=== PATIENT | female | born 1945 | race Caucasian/White ===

== ENCOUNTER 2018-10-08 12:11 | Day surgery (SDC) | payer MEDICARE ==
[2018-10-07 15:59] VITALS: BMI 51.9
--- NOTE | 2018-10-08 12:59 | RAD ---
5 VIEWS CERVICAL SPINE: Date: 10/08/18 COMPARISON: None. HISTORY: Cervical radiculopathy. FINDINGS: AP, lateral, open-mouth odontoid, and flexion/extension views of the cervical spine were performed. T he intervertebral discs are narrowed in the lower cervical spine with small surrounding osteophytes p resent. Vertebral bodies demonstrate normal height and alignment without fracture or subluxation. Ali gnment is unchanged with flexion and extension. Posterior facet arthrosis is seen in the mid cervical spine. IMPRESSION: Degenerative changes of the cervical spine with unchanged alignment with bending. POS: [facility]
--- NOTE | 2018-10-08 14:22 | CT ---
CT CERVICAL SPINE: Multiple axial tomograms are obtained through the cervical spine with multiplanar reconstruction. INDICATION: Cervical radiculopathy. FINDINGS: Moderate degenerative changes of the cervical spine. The cervical vertebrae maintain height. There are degenerative disk changes at all levels. There is an anterolisthesis at C4-5 measured at approxi mately 4-5 mm. There is slight anterolisthesis at C3-4 measured at 3 mm. At C2-3, mild posterior spondylosis without cord impingement. No significant foraminal stenosis at t his level. At C3-4, slight anterolisthesis. Posterior spondylosis effaces the anterior subarachnoid space. Rig ht foraminal narrowing due to facet and uncinate hypertrophy. At C4-5, anterolisthesis. Posterior disk bulge and spondylosis. These changes impinge on the anteri or cord. Right foraminal stenosis due to facet and uncinate hypertrophy. At C5-6, mild posterior disk bulge and spondylosis abut the anterior cord. Bilateral foraminal narro wing secondary to facet and uncinate hypertrophy. At C6-7, no significant disk bulge or spondylosis. No significant foraminal stenosis. IMPRESSION: Degenerative disk changes throughout the cervical spine as described above with anterolisthesis at C3 -4 and C4-5 as noted. See description at each level above. POS: [facility]
== END 2018-10-08 16:45 ==
LOC: CT 12:11
PROVIDERS: ATTEND Radiology Diagnostic Radiology
PROC: B02BZZZ Computerized Tomography (CT Scan) of Spinal Cord (ICD-10-PCS; principal; 2018-10-08)
PROC: [UNRECOGNIZED PROCEDURE] (2018-10-08)
DX: M54.12 Radiculopathy, cervical region (principal); M47.812 Spondylosis without myelopathy or radiculopathy, cervical region; M43.12 Spondylolisthesis, cervical region; M50.31 Other cervical disc degeneration, high cervical region
CPT/HCPCS: 72050; 72125

== ENCOUNTER 2018-11-19 06:49 | Day surgery (SDC) | payer MEDICARE ==
[2018-11-19] MEDS ORDERED: Fentanyl 100 MCG/2 ML VIAL ONE (08:26)
[2018-11-19] MEDS ORDERED: Midazolam HCl 2 mg/2 ml Vial ONE (08:26)
== END 2018-11-19 09:50 | disposition home or self-care (01) ==
LOC: SDC/OP 06:49
PROVIDERS: ATTEND Surgery
DX: M54.12 Radiculopathy, cervical region (principal); Z53.8 Procedure and treatment not carried out for other reasons; Z88.0 Allergy status to penicillin; Z88.2 Allergy status to sulfonamides; Z88.8 Allergy status to other drugs, medicaments and biological substances; Z91.040 Latex allergy status; Z91.041 Radiographic dye allergy status
CPT/HCPCS: 36415; 82565; J2250; J3010